=== PATIENT | female | born 1930 | race Caucasian/White ===

== ENCOUNTER 2017-07-13 08:46 | Inpatient (IN) | payer MEDICARE, OTHER ==
[~2017-07-13] VITALS: Ht 152.4 cm; Wt 59.4 kg
--- NOTE | 2017-07-13 08:46 | NUR ---
BIB RA FROM HOME,RIGHT SHOULDER PAIN AFTER A GLF IN THE BATHROOM DUE TO DIZZINESS
[2017-07-13] MEDS ORDERED: IV NS 0.9% 500 ML BAG IV ONE (09:00)
[2017-07-13] MEDS ORDERED: ONDANSETRON HCL/PF 4 MG/2 ML VIAL IVP ONE (09:00)
[2017-07-13] MEDS ORDERED: ONDANSETRON HCL/PF 4 MG/2 ML VIAL ONE (09:02)
--- NOTE | 2017-07-13 09:15 | NUR ---
LFA #20 IV ACCESS. BLOOD SAMPLE COLLECTED SENT TO LAB
[2017-07-13 09:36] LABS: CALCIUM, SERUM 10.3 mg/dL (8.5-10.1); CARBON DIOXIDE 28 mmol/L (21-32); CHLORIDE 100 mmol/L (98-107); CREATININE 0.9 mg/dL (0.6-1.3); GLUCOSE 140 mg/dL (74-106); POTASSIUM 5.2 mmol/L (3.5-5.1); SODIUM SERUM 134 mmol/L (136-145); UREA NITROGEN, BLOOD 63 mg/dL (7-18)
[2017-07-13 09:42] LABS: ALANINE AMINOTRANSFERASE 24 U/L (12-78); ALBUMIN 3.3 g/dL (3.4-5.0); ALKALINE PHOSPHATASE 88 U/L (46-116); ASPARTATE AMINOTRANSFERASE 51 U/L (15-37); TOTAL PROTEIN, SERUM 6.7 g/dL (6.4-8.2)
[2017-07-13 09:43] LABS: BILIRUBIN,DIRECT 0.2 mg/dL (0.0-0.2); BILIRUBIN,TOTAL 1.1 mg/dL (0.2-1.0)
[2017-07-13 09:45] LABS: TROPONIN I 0.269 ng/mL (0.00-0.056)
--- NOTE | 2017-07-13 09:51 | NUR ---
CARDIOLOGY ON-CALL PAGED
[2017-07-13] MEDS ORDERED: METO25TA6 PO (10:11)
[2017-07-13] MEDS ORDERED: FEBU80TA PO (10:11)
[2017-07-13] MEDS ORDERED: OMEP20TA5 PO (10:11)
[2017-07-13] MEDS ORDERED: HYDR500C2 PO (10:11)
[2017-07-13] MEDS ORDERED: ASPI-1169 PO (10:11)
[2017-07-13] MEDS ORDERED: FURO40TA5 PO (10:11)
[2017-07-13] MEDS ORDERED: HYDR-4077 PO (10:11)
[2017-07-13] MEDS ORDERED: AMLO2.5T3 PO (10:11)
[2017-07-13 10:14] LABS: HEMATOCRIT 56 % (33-45); HEMOGLOBIN 16.3 g/dL (11.5-14.8); MEAN CORPUSCULAR HGB CONC 29 g/dl (31.0-36.0); MEAN CORPUSCULAR VOLUME 83 fL (82-100); PLATELET COUNT (AUTO) 124 /CMM (150-450); RDW COEFFICIENT OF VARIATION 24.9 (11.5-15.0); RED BLOOD CELL COUNT(AUTO) 6.77 MIL/uL (4.0-5.2); WHITE BLOOD COUNT (AUTO) 9.5 K/uL (4.3-11.0)
[2017-07-13 10:19] LABS: INR 1.15 (0.85-1.15)
--- NOTE | 2017-07-13 10:37 | NUR ---
GAVE REPORT TO АНДРЕЙ FREGOSO ADMITTING DX SYNCOPE . ANA ARIAS NP ADMITTING AND SEEN BY DR NEAL
[2017-07-13 10:47] LABS: LYMPHOCYTES % (MANUAL) 6 % (16-48); MONOCYTES % (MANUAL) 12 % (0-11.0); MYELOCYTES % 1 % (0-0); NEUTROPHILS % (MANUAL) 79 (42-76); REACTIVE LYMPHOCYTES 2 % (0-0)
[2017-07-13] MEDS ORDERED: MAG HYDROX/AL HYDROX/SIMETH 30 ML UDC PO PRN (11:30)
[2017-07-13] MEDS ORDERED: ONDANSETRON HCL/PF 4 MG/2 ML VIAL IVP PRN (11:30)
[2017-07-13] MEDS ORDERED: ZOLPIDEM TARTRATE 5 MG TABLET PO PRN (11:30)
[2017-07-13] MEDS ORDERED: ACETAMINOPHEN 325 MG TABLET PO PRN (11:30)
[2017-07-13] MEDS ORDERED: MAGNESIUM HYDROXIDE 30 ML UDC PO PRN (11:30)
--- NOTE | 2017-07-13 11:30 | NUR ---
WINDOW REPAIRER OPENING NOTES. PT RECEIVED A&0X3 URUGUAYAN SPEAKING ONLY WITH FAMILY AT BEDSIDE FOR TRANSLATIONS. PT TOLERATING ROOM AIR WITH SAO2 93% AND DENIES SOB, LUNGS AUSCULTATED CLEAR BUT SLIGHTLY DIMINISHED IN LOWER LOBES. PT DENIES PAIN, PT DENIES TRAUMA FROM GLF. PT WITHOUT OBVIOUS S/S OF DISTRESS OR DISCOMFORT. PT WITH IVC AT L FA G#20. INTACT AND SALINE FLUSH PATENT. EMERGENCY DEPARTMENT ORDERS REVIEWED. PT AND FAMILY BRIEFED ON POC AND ARE WITHOUT CONCERN OR COMPLAINT AT THIS TIME.
[2017-07-13] MEDS: HYDROXYUREA 500 MG CAPSULE PO SCH (12:13)
[2017-07-13] MEDS: ASPIRIN 81 MG TAB.CHEW PO SCH (12:13)
[2017-07-13] MEDS: METOPROLOL TARTRATE 25 MG TABLET PO SCH ×2 (12:13→17:00)
[2017-07-13 13:21] LABS: MAGNESIUM 1.5 mg/dL (1.8-2.4); PHOSPHORUS 3.4 mg/dL (2.5-4.9); THYROID STIMULATING HORMONE 1.975 uIU/mL (0.358-3.74)
[2017-07-13] MEDS: IV NS 0.9% 1,000 ML IV PRN ×2 (14:41→22:43)
[2017-07-13] MEDS ORDERED: Magnesium 1GM/D5W 100ML PREMIX 100 ML IV SCH (15:00)
[2017-07-13] MEDS: FOLIC ACID 1 MG TABLET PO SCH (15:28)
[2017-07-13 16:00] VITALS: BP 94/50
--- NOTE | 2017-07-13 16:30 | NUR ---
RN PROCEDURES NOTES. PT WITH CRITICAL TROP 1.422. RADIATION PROTECTION TECHNICIAN JUANA INFORMED. REQUESTING STAT EKG. PT REPORTS RIGHT SHOULDER PAIN WHEN ABDUCTING ARM R/T FALL, PT DENIES CHEST PAIN. DENIES SOB. PT BP 97/58 TELE SR 77. PT REPORTS FEELING BETTER THAN BEFORE AND IS WITHOUT CONCERN OR COMPLAINT.
[2017-07-13] MEDS: hydrALAZINE HCL 50 MG TABLET PO SCH (17:00)
--- NOTE | 2017-07-13 18:45 | NUR ---
RIP MACHINE OPERATOR OPENING NOTES. PT REMAINS A&0X3 LATVIAN SPEAKING ONLY WITH FAMILY AT BEDSIDE FOR TRANSLATIONS. TELE SR 78. PT TOLERATING ROOM AIR WITH SAO2 94% AND DENIES SOB. PT REPORTS MINOR R SHOULDER PAIN WHEN ABDUCTING R ARM. PT WITHOUT OBVIOUS S/S OF DISTRESS OR DISCOMFORT. PT WITH IVC AT L FA G#20 INTACT AND OPERATIONAL WITH IVC PER RX. SKIN ASSESSMENT AND BELONGING CHECKLIST COMPLETED AND CHARTED. ALL DAY NURSE DUTIES ATTENDED TO, PT AND FAMILY ARE WITHOUT CONCERN OR COMPLAINT. WILL ENDORSE TO NIGHT NURSE FOR KLEBER.
--- NOTE | 2017-07-13 19:30 | NUR ---
rn initial notes: received report from chaparro caal, pt in bed, awake, a/o x3 on ra respiration even and unlabored, denies any pain at this time, npo for us abdomen, per day rn pt will resume her diet once us abdomen is performed. iv access patent and flushing well, infusing with ns at 200ml/hr. son at bedside. on tele monitoring sinus rhythm with bbb hr 75. denies any chest pain or discomfort. safety precautions for fall initiated call light in reach, will continue monitoring pt
--- NOTE | 2017-07-13 19:40 | NUR ---
rn notes: per day rn report, after us abdomen is performed, pt can be resume to previous diet
[2017-07-13 20:00] VITALS: BP 108/56
[2017-07-13 20:15] VITALS: BP 95/55
[2017-07-13 20:30] VITALS: BP 100/66
[2017-07-13 20:40] VITALS: BP 108/56
--- NOTE | 2017-07-13 22:20 | NUR ---
RN NOTES: SPOKES TO CARE MANAGER CNA RAILWAY TRACK PLANT OPERATOR, RELAYED TROPONIN RESULT, INFORMED THAT PT ALSO SEEN BY ENGINEERING ASSOCIATE DR NEAL, VS STABLE, NO C/O CHEST PAIN, ON SINUS RHYTHM WITH BBB HR 75, NO FURTHER ORDERS FROM CARE MANAGER CNA, STATED TO ALSO CALL DR NEAL REGARDING RESULT SINCE HE'S ON THE CASE
--- NOTE | 2017-07-13 22:56 | NUR ---
RN NOTES: CONTACTED WIRE RIGGER TO MADE AWARE OF TROPONIN RESULT, 1.458, NO FURTHER ORDERS RECEIVED FROM
[2017-07-14] VITALS (8 sets, daily range): BP systolic 106–128; BP diastolic 55–74
--- NOTE | 2017-07-14 | NUR ---
rn notes: pt refused standing for orthostatic bp, as pt currently sleeping, arousable.
[2017-07-14] MEDS: IV NS 0.9% 1,000 ML IV PRN (05:46)
--- NOTE | 2017-07-14 06:00 | NUR ---
RN NOTES: PT REQUESTED TO SIT ON THE EDGE OF THE BED, SON AT BED SIDE, PT STATED SHE FELT MORE COMFORTABLE SITTING WHILE SLEEPING, TRANSLATED BY SON.
[2017-07-14 06:42] LABS: BASOPHILS # (AUTO) 0.5 /CMM (0.0-0.2); EOSINOPHILS % (AUTO) 0.8 % (0.0-6.0); HEMATOCRIT 52 % (33-45); HEMOGLOBIN 15.4 g/dL (11.5-14.8); LYMPHOCYTES # (AUTO) 1.2 /CMM (0.8-4.8); LYMPHOCYTES % (AUTO) 15.5 % (20.0-44.0); MEAN CORPUSCULAR HGB CONC 29 g/dl (31.0-36.0); MEAN CORPUSCULAR VOLUME 83 fL (82-100); MONOCYTES # (AUTO) 0.4 /CMM (0.1-1.30); MONOCYTES % (AUTO) 5.2 % (2.0-12.0); NEUTROPHILS # (AUTO) 5.5 /CMM (1.8-8.9); NEUTROPHILS % (AUTO) 72.1 % (43.0-81.0); PLATELET COUNT (AUTO) 131 /CMM (150-450); RDW COEFFICIENT OF VARIATION 24.3 (11.5-15.0); WHITE BLOOD COUNT (AUTO) 7.6 K/uL (4.3-11.0)
--- NOTE | 2017-07-14 06:45 | NUR ---
RN CLOSING NOTES: PT SITTING ON THE BED, DENIES ANY PAIN OR DISCOMFORT AT THIS TIME, DENIES ANY SOB, IV ACCESS REMAINS PATENT AND FLUSHING WELL, INFUSING WITH NS AT 200ML/HR, VS REMAINS STABLE, PT ON ORTHOSTATICS, DENIES ANY HEAD ACHE DIZZINESS OR LIGHT HEADEDNESS, PT NEEDS MODERATE ASSISTANCE GOING TO THE BATHROOM. REMAINS FREE FROM FALL DURING SHIFT. AWAITING RECORDS FROM DR RIZZO, REQUEST WAS FAXED ALREADY. VS REMAINS STABLE, NEEDS ATTENDED, REMAINS ON SINUS RHYTHM WITH BBB HR 80. SAFETY PRECAUTIONS FOR FALL REMAINS ENGAGED, CALL LIGHT IN REACH, WILL ENDORSE TO DAY RN FOR KLEBER.
[2017-07-14 06:54] LABS: BASOPHILS % (AUTO) 6.4 % (0.0-2.0)
--- NOTE | 2017-07-14 07:05 | NUR ---
RN NOTES PT IS SITTING UP IN BED, RESTING COMFORTABLY WITH SON AT BEDSIDE. PT ON RA, RESPIRATIONS ARE EVEN AND UNLABORED. IV ON LFA INTACT AND RUNNING NS @ 200ML/HR. NO SIGNS OF DISTRESS NOTED. SAFETY MEASURES ARE IN PLACE, CALL LIGHT IS IN REACH. WILL CONTINUE TO MONITOR.
[2017-07-14 07:08] LABS: ALANINE AMINOTRANSFERASE 16 U/L (12-78); ALBUMIN 2.7 g/dL (3.4-5.0); ALKALINE PHOSPHATASE 63 U/L (46-116); ASPARTATE AMINOTRANSFERASE 33 U/L (15-37); BILIRUBIN,TOTAL 0.8 mg/dL (0.2-1.0); CALCIUM, SERUM 9.3 mg/dL (8.5-10.1); CARBON DIOXIDE 27 mmol/L (21-32); CHLORIDE 104 mmol/L (98-107); CREATININE 0.8 mg/dL (0.6-1.3); GLUCOSE 94 mg/dL (74-106); MAGNESIUM 2.6 mg/dL (1.8-2.4); PHOSPHORUS 3.4 mg/dL (2.5-4.9); POTASSIUM 4.2 mmol/L (3.5-5.1); SODIUM SERUM 138 mmol/L (136-145); TOTAL PROTEIN, SERUM 5.5 g/dL (6.4-8.2); UREA NITROGEN, BLOOD 55 mg/dL (7-18)
[2017-07-14] MEDS ORDERED: PANTOPRAZOLE 40 MG TABLET.DR PO SCH (07:30)
[2017-07-14 07:45] LABS: TROPONIN I 0.773 ng/mL (0.00-0.056)
[2017-07-14 08:00] LABS: THYROID STIMULATING HORMONE 1.348 uIU/mL (0.358-3.74)
[2017-07-14] MEDS: hydrALAZINE HCL 50 MG TABLET PO SCH ×2 (08:17→16:38)
[2017-07-14] MEDS: FOLIC ACID 1 MG TABLET PO SCH (08:21)
[2017-07-14] MEDS: ASPIRIN 81 MG TAB.CHEW PO SCH (08:21)
[2017-07-14] MEDS: METOPROLOL TARTRATE 25 MG TABLET PO SCH ×2 (08:21→16:38)
[2017-07-14] MEDS: HYDROXYUREA 500 MG CAPSULE PO SCH (08:21)
[2017-07-14] MEDS: PANTOPRAZOLE 40 MG TABLET.DR PO SCH (08:21)
[2017-07-14] MEDS ORDERED: AMLODIPINE BESYLATE 2.5 MG TABLET PO SCH (09:00)
[2017-07-14] MEDS ORDERED: IV NS 0.9% 1,000 ML IV PRN (09:12)
[2017-07-14] MEDS ORDERED: Z GUARD REMEDY 2 OZ OINT TP PRN (16:00)
[2017-07-14] MEDS: LACTOBACILLUS RHAMNOSUS GG 1 EACH CAP.SPRINK PO SCH (16:38)
--- NOTE | 2017-07-14 18:30 | NUR ---
RN NOTES PT IS SITTING IN BED, RESTING COMFORTABLY WITH DAUGHTER AT BEDSIDE. PT ON RA, RESPIRATIONS ARE EVEN AND UNLABORED. IV ON LFA INTACT AND RUNNING NS @ 100ML/HR. ALL MEDS WERE GIVEN ORDERED AND PT NEEDS MET. NO SIGNS OF DISTRESS NOTED. SAFETY MEASURES ARE IN PLACE, CALL LIGHT IS IN REACH. WILL ENDORSE TO VIDEO GAME ANIMATOR RN FOR CONTINUITY OF CARE.
--- NOTE | 2017-07-14 19:15 | NUR ---
RN OPENING NOTES RECEIVED PT SITTING UP IN BED, ALERT AN ORIENTED, VERBALLY RESPONSIVE WITH FAMILY AT BEDSIDE. PT IS TOLERATING ROOM AIR, NO SOB NOTED, BREATHING EVEN AND UNLABORED AND IN NO DISTRESS. PT CONTINUES TO RECEIVE IVF ORDERED VIA IV LINE ON LFA. ALL PATIENT'S NEEDS ATTENDED TO, CALL LIGHT PLACED WITHIN EASY REACH. PLACED BED IN LOW POSITION AND LOCKED IN PLACE. WILL CONTINUE TO MONITOR.
--- NOTE | 2017-07-15 06:32 | NUR ---
RN CLOSING NOTES PATIENT IN BED, AWAKE, ALERT AND ORIENTED X 4, VERBALLY RESPONSIVE, NO SOB, BREATHING EVEN AND ULABORED AND IN NO ACUTE DISTRESS. PATIENT CONTINUES TO RECEIVE IVF ORDERED VIA IV LINE ON LFA G#20. ALL PATIENT'S NEEDS ATTENDED TO THROUGHOUT THE SHIFT. SAFETY PRECAUTIONS IN PLACE, BED LOCKED IN PLACE AND IN LOW POSITION. CALL LIGHT WITHIN EASY REACH. WILL ENDORSE TO AM SHIFT NURSE FOR CONTINUITY OF CARE.
[2017-07-15 06:36] LABS: HEMATOCRIT 54 % (33-45); HEMOGLOBIN 15.9 g/dL (11.5-14.8); MEAN CORPUSCULAR HGB CONC 29 g/dl (31.0-36.0); MEAN CORPUSCULAR VOLUME 83 fL (82-100); PLATELET COUNT (AUTO) 136 /CMM (150-450); RDW COEFFICIENT OF VARIATION 24.6 (11.5-15.0); RED BLOOD CELL COUNT(AUTO) 6.47 MIL/uL (4.0-5.2); WHITE BLOOD COUNT (AUTO) 8.2 K/uL (4.3-11.0)
[2017-07-15 06:44] LABS: ALANINE AMINOTRANSFERASE 17 U/L (12-78); ALBUMIN 2.7 g/dL (3.4-5.0); ALKALINE PHOSPHATASE 63 U/L (46-116); ASPARTATE AMINOTRANSFERASE 31 U/L (15-37); BILIRUBIN,TOTAL 0.7 mg/dL (0.2-1.0); CALCIUM, SERUM 9.6 mg/dL (8.5-10.1); CARBON DIOXIDE 24 mmol/L (21-32); CHLORIDE 105 mmol/L (98-107); CREATININE 0.8 mg/dL (0.6-1.3); GLUCOSE 95 mg/dL (74-106); MAGNESIUM 1.9 mg/dL (1.8-2.4); PHOSPHORUS 2.8 mg/dL (2.5-4.9); POTASSIUM 4.8 mmol/L (3.5-5.1); SODIUM SERUM 139 mmol/L (136-145); TOTAL PROTEIN, SERUM 5.6 g/dL (6.4-8.2); UREA NITROGEN, BLOOD 48 mg/dL (7-18)
[2017-07-15 08:00] VITALS: BP 139/66
[2017-07-15 09:44] LABS: BAND % (MANUAL) 1 % (0.0-5.0); BASOPHILS % (MANUAL) 3 % (0.0-2.0); LYMPHOCYTES % (MANUAL) 20 % (16-48); MONOCYTES % (MANUAL) 5 % (0-11.0); NEUTROPHILS % (MANUAL) 71 (42-76)
[2017-07-15] MEDS: ASPIRIN 81 MG TAB.CHEW PO SCH (10:56)
[2017-07-15] MEDS: hydrALAZINE HCL 50 MG TABLET PO SCH ×2 (10:56→17:39)
[2017-07-15] MEDS: FOLIC ACID 1 MG TABLET PO SCH (10:57)
[2017-07-15] MEDS: METOPROLOL TARTRATE 25 MG TABLET PO SCH ×2 (10:57→17:40)
[2017-07-15] MEDS: PANTOPRAZOLE 40 MG TABLET.DR PO SCH (10:58)
[2017-07-15] MEDS: LACTOBACILLUS RHAMNOSUS GG 1 EACH CAP.SPRINK PO SCH ×2 (10:58→17:39)
--- NOTE | 2017-07-15 11:30 | NUR ---
pt,s personal oncology office contacted to find out why medical records were not faxed to [facility] as per request few days ago-office states records too lengthy so dr. henley to call md personally.dr. henley texted all info .
[2017-07-15 16:00] VITALS: BP 138/60
--- NOTE | 2017-07-15 18:30 | NUR ---
dtrGlen doshi here most of day and shortly after dr. henley left dtr. with questions,eve. caal to follow up.pt. assisted to bathroom several times with use of walker.takes meds well and compliant.
--- NOTE | 2017-07-15 19:15 | NUR ---
RN OPENING NOTES RECEIVED PATIENT ASLEEP IN BED BUT EASILY AROUSABLE, NO SOB NOTED, PT ALERT AND ORIENTED, IN NO ACUTE DISTRESS, WITH NO C/O PAIN AND IS IN STABLE CONDITION. PATIENT'S FAMILY AT BEDSIDE. PT'S DAUGHTER HEATHER REQUESTING TO SPEAK WITH THE ONCOLOGIST, DR. BAER. PAGED DR. BAER REGARDING DAUGHTER'S REQUEST. ALL PATIENT'S NEEDS ATTENDED TO AT THIS TIME. WILL CONTINUE TO MONITOR.
[2017-07-15 20:00] VITALS: BP 121/50
--- NOTE | 2017-07-16 06:23 | NUR ---
RN CLOSING NOTES PATIENT AWAKE IN BED, ALERT AND ORIENTED X 4, NO SOB NOTED, NO ACUTE DISTRESS THROUGHOUT THE SHIFT. ABLE TO AMBULATE WITH WALKER WITH ASSISTANCE. ALL PATIENT'S NEEDS ATTENDED TO, CALL LIGHT WITHIN EASY REACH AND PLACED BED IN LOW POSITION. WILL ENDORSE TO AM SHIFT NURSE FOR CONTINUITY OF CARE.
[2017-07-16 06:45] LABS: BASOPHILS # (AUTO) 0.8 /CMM (0.0-0.2); EOSINOPHILS % (AUTO) 0.7 % (0.0-6.0); HEMATOCRIT 53 % (33-45); HEMOGLOBIN 15.6 g/dL (11.5-14.8); LYMPHOCYTES # (AUTO) 1.3 /CMM (0.8-4.8); LYMPHOCYTES % (AUTO) 14.9 % (20.0-44.0); MEAN CORPUSCULAR HGB CONC 29 g/dl (31.0-36.0); MEAN CORPUSCULAR VOLUME 84 fL (82-100); MONOCYTES # (AUTO) 0.6 /CMM (0.1-1.30); NEUTROPHILS # (AUTO) 5.8 /CMM (1.8-8.9); NEUTROPHILS % (AUTO) 67.8 % (43.0-81.0); PLATELET COUNT (AUTO) 129 /CMM (150-450); RDW COEFFICIENT OF VARIATION 24.5 (11.5-15.0); RED BLOOD CELL COUNT(AUTO) 6.38 MIL/uL (4.0-5.2); WHITE BLOOD COUNT (AUTO) 8.6 K/uL (4.3-11.0)
[2017-07-16 06:50] LABS: BASOPHILS % (AUTO) 9.6 % (0.0-2.0)
[2017-07-16 07:15] LABS: CALCIUM, SERUM 9.9 mg/dL (8.5-10.1); CARBON DIOXIDE 23 mmol/L (21-32); CHLORIDE 107 mmol/L (98-107); CREATININE 0.7 mg/dL (0.6-1.3); GLUCOSE 83 mg/dL (74-106); MAGNESIUM 2.8 mg/dL (1.8-2.4); PHOSPHORUS 2.4 mg/dL (2.5-4.9); POTASSIUM 4.5 mmol/L (3.5-5.1); SODIUM SERUM 138 mmol/L (136-145)
[2017-07-16 07:31] LABS: UREA NITROGEN, BLOOD 45 mg/dL (7-18)
[2017-07-16 08:00] VITALS: BP_SYST 150; BP_SYST 171; BP_DIAS 70; BP_DIAS 91
--- NOTE | 2017-07-16 08:00 | NUR ---
ms rn received on bed, awake,alert,oriented x4,not in any form of distress, respirations even and unlabored,no sob noted.lungs are clear,abdomen soft,positive bowel sounds,denies pain at this time, will monitor patient's condition.
[2017-07-16 08:48] LABS: BAND % (MANUAL) 7 % (0.0-5.0); BASOPHILS % (MANUAL) 3 % (0.0-2.0); LYMPHOCYTES % (MANUAL) 12 % (16-48); MONOCYTES % (MANUAL) 9 % (0-11.0); NEUTROPHILS % (MANUAL) 69 (42-76)
--- NOTE | 2017-07-16 09:00 | NUR ---
ms caal breakfast served,due meds given,tolerated well.
[2017-07-16] MEDS: ASPIRIN 81 MG TAB.CHEW PO SCH (09:36)
[2017-07-16] MEDS: HYDROXYUREA 500 MG CAPSULE PO SCH (09:36)
[2017-07-16] MEDS: LACTOBACILLUS RHAMNOSUS GG 1 EACH CAP.SPRINK PO SCH ×2 (09:36→18:53)
[2017-07-16] MEDS: FOLIC ACID 1 MG TABLET PO SCH (09:36)
[2017-07-16] MEDS: PANTOPRAZOLE 40 MG TABLET.DR PO SCH (09:37)
[2017-07-16] MEDS: METOPROLOL TARTRATE 25 MG TABLET PO SCH ×2 (09:38→18:54)
[2017-07-16] MEDS: hydrALAZINE HCL 50 MG TABLET PO SCH ×2 (09:38→18:54)
[2017-07-16] MEDS ORDERED: HYDR500C PO (10:19)
[2017-07-16] MEDS ORDERED: FOLI1TAB16 PO (10:19)
[2017-07-16] MEDS ORDERED: LACT1CAP72 PO (10:19)
[2017-07-16] MEDS ORDERED: MAGN400O6 PO (10:19)
[2017-07-16] MEDS ORDERED: LIDOCAINE 1% INJ 50 ML MDV IJ ONE (14:30)
--- NOTE | 2017-07-16 14:30 | NUR ---
ms rn still waiting for doctor henley to do biopsy.
[2017-07-16] MEDS: HYDROCODONE/APAP 5/325MG 1 EACH TABLET PO PRN ×2 (14:33→18:55)
[2017-07-16 16:00] VITALS: BP 127/57
--- NOTE | 2017-07-16 17:17 | NUR ---
ms rn on bed, all needs attended.
--- NOTE | 2017-07-16 19:30 | NUR ---
MS RN INITIAL NOTE PT IS SITTING UP ON SIDE OF THE BED. NO SIGNS OF SOB OR DISTRESS, BREATHING EVENLY AND UNLABORED ON RA. DENIES PAIN AT THIS TIME. FAMILY IS AT BEDSIDE. PT IS S/P BONE MARROW BIOPSY BY DR BAER. BED IS IN LOW AND LOCKED POSITION, CALL LIGHT WITHIN REACH. WILL CONTINUE TO MONITOR PT.
--- NOTE | 2017-07-16 19:30 | NUR ---
ms rn s/p bone marrow done by dr henley,specimen sent, site no s/s of active bleeding.
[2017-07-16 20:00] VITALS: BP 120/54
--- NOTE | 2017-07-17 06:15 | NUR ---
MS RN CLOSING NOTE PT IS IN BED SLEEPING WITH FAMILY AT BEDSIDE. EASILY AROUSED. NO SIGNS OF SOB OR DISTRESS, BREATHING EVENLY AND UNLABORED ON RA. DENIES PAIN AT THIS TIME. NO ACUTE CHANGES THROUGHOUT THE SHIFT. ALL NEEDS WERE ANTICIPATED AND MET. BED IS IN LOW AND LOCKED POSITION, CALL LIGHT WITHIN REACH. WILL ENDORSE TO DAYSHIFT
[2017-07-17 08:00] VITALS: BP 137/68
--- NOTE | 2017-07-17 08:00 | NUR ---
MS RN RECEIVED ON BED, AWAKE,ALERT,ORIENTED X3,NOT IN ANY FORM OF DISTRESS, RESPIRATIONS EVEN AND UNLABORED,NO SOB NOTED, LUNGS ARE CLEAR,ABDOMEN SOFT,POSITIVE BOWEL SOUNDS, DENIES PAIN AT THIS TIME, WILL MONITOR PATIENT.
[2017-07-17] MEDS: LACTOBACILLUS RHAMNOSUS GG 1 EACH CAP.SPRINK PO SCH (08:42)
[2017-07-17] MEDS: PANTOPRAZOLE 40 MG TABLET.DR PO SCH (08:42)
[2017-07-17] MEDS: ASPIRIN 81 MG TAB.CHEW PO SCH (08:42)
[2017-07-17] MEDS: HYDROXYUREA 500 MG CAPSULE PO SCH (08:42)
[2017-07-17] MEDS: FOLIC ACID 1 MG TABLET PO SCH (08:43)
[2017-07-17] MEDS: METOPROLOL TARTRATE 25 MG TABLET PO SCH (08:48)
[2017-07-17 08:52] VITALS: BP 137/68
[2017-07-17] MEDS: hydrALAZINE HCL 50 MG TABLET PO SCH (08:52)
--- NOTE | 2017-07-17 09:00 | NUR ---
MS FREGOSO BREAKFAST SERVED,DUE MEDS GIVEN,TOLERATED WELL.
--- NOTE | 2017-07-17 09:30 | NUR ---
MS RN WAS SEEN BY CHRISTIANE WILSON, PATIENT WILL BE DISCHARGE TO [facility] TODAY.
--- NOTE | 2017-07-17 10:25 | NUR ---
MS RN PT WAS TRANSFERRED TO SNF, DISCHARGE INSTRUCTIONS GIVEN AND UNDERSTOOD, TO HAVE A FOLLOW UP W/ DOCTOR BAER ON MA16, 11 AM, SPOKE W/ CHRISTIANE.REPORT GIVEN TO RUSTY OF [facility] ([place]
== END 2017-07-17 10:20 | DRG 280 ==
LOC: ER 08:48 → TELE 10:55 → MED 07-14 12:15
PROVIDERS: ADMIT Nurse Practitioner Acute Care; ATTEND Nurse Practitioner Acute Care
DX: I21.A1 Myocardial infarction type 2 (principal); N17.0 Acute kidney failure with tubular necrosis; E87.5 Hyperkalemia; E83.42 Hypomagnesemia; G90.8 Other disorders of autonomic nervous system; D69.6 Thrombocytopenia, unspecified; D45 Polycythemia vera; D46.9 Myelodysplastic syndrome, unspecified; E86.0 Dehydration; Z95.2 Presence of prosthetic heart valve; Z90.49 Acquired absence of other specified parts of digestive tract; Z79.82 Long term (current) use of aspirin; Z79.899 Other long term (current) drug therapy; I35.0 Nonrheumatic aortic (valve) stenosis; I44.7 Left bundle-branch block, unspecified; M10.9 Gout, unspecified; K59.00 Constipation, unspecified; N28.1 Cyst of kidney, acquired; I11.0 Hypertensive heart disease with heart failure; I50.9 Heart failure, unspecified; M48.02 Spinal stenosis, cervical region
CPT/HCPCS: 36415; 70450-TC; 71045-TC; 72125-TC; 76700-TC; 80048-TC; 80053-TC; 80061-TC; 80076-TC; 82306; 82746; 83615-TC; 83735-TC; 84100-TC; 84439-TC; 84443-TC; 84484-TC; 84550-TC; 85025-TC; 85730-TC; 86850-TC; 87081-TC; 93307-TC; 97110-TC; 97116-TC; 97530-TC; A4606; A6402; J2405; J3475; J3490; J7030; J7040; Z7610